=== PATIENT | female | born 1955 | race Caucasian/White ===

== ENCOUNTER → 2020-02-19 | Outpatient (CLI) | payer MEDICARE ==
--- NOTE | 2020-02-19 11:46 | RAD ---
MR#: [id number] Date of Study: 02/19/2020 Ordering Physician: ROSSY MOSLEY Referring Physician: KAMILLA YATES Tech: APPROVED REPORT Test Type: Exercise Stress Nurse/Tech: Giovanni Reis Test Indications: Dyspnea Cardiac History: No known cardiac Medications: See EHR Resting Heart Rate: 86 bpm Resting Blood Pressure: 152/86mmHg Pretest Chest Pain: None Stress Symptoms Pt was too short of breath to continue longer than 1.5 min POST EXERCISE Reason for Termination: Patient request Target HR: 134 Max HR: 136 bpm 100% of Maximum Predicted HR: 134 bpm Exercise duration: 1:35 min:sec, 1 Stage Exercise capacity: 4.6METs Max Blood Pressure: 162/80mmHg Blood Pressure response to exercise: Normal blood pressure response during stress. Heart Rate response to exercise: Normal Chest Pain: No. Arrhythmia: No. ST Change: No. INTERPRETATION Stress EKG Conclusion: Baseline EKG showed sinus rhythm. No ischemic changes at peak stress. Few PV Cs without any significant arrhythmias. Conclusion 1. Treadmill exercise stress electrocardiogram did not show any diagnostic evidence of ischemia. 2. Patient had poor activity tolerance. Signed by : Yonathan Castellon, Electronically Approved : 02/19/2020 11:46:28
== END | disposition home or self-care (01) ==
LOC: NM 09:15
PROVIDERS: ATTEND Family Medicine
DX: R07.89 Other chest pain (principal)
CPT/HCPCS: 93017

== ENCOUNTER → 2020-05-10 | Outpatient (CLI) | payer MEDICARE ==
[~2020-05-10] MED LIST: ESOM20CA PO; IOHEXOL 300 MG/ML 75 ML VIAL. IV ONE; MELA2.5T PO; MV-M1CAP15 PO; NAPR125O4 PO
--- NOTE | 2020-05-10 10:32 | RAD ---
CT CHEST W/CONTRAST INDICATION: Reason: soa x 2 yrs, dry cough, hx ovarian cancer - hyster. x 5 yrs Comparison: None. TECHNIQUE: Following the uneventful administration of intravenous contrast, 75 cc Omnipaque 300, axial CT sections were obtained through the lungs and upper abdomen. Multiplanar reconstructions were obtained. RS compliance statement: One or more of the following individualized dose reduction techniques were utilized for this examination: 1. Automated exposure control 2. Adjustment of the mA and/or kV according to patient size 3. Use of iterative reconstruction technique FINDINGS: Lungs and Airways: No pulmonary mass or consolidation. No abnormality of the central airways. Pleura: The pleural spaces are normal. Heart and Mediastinum: The visualized thyroid is normal in size and attenuation. No axillary or supraclavicular lymphadenopathy. No mediastinal, hilar or retrocrural lymphadenopathy. The heart and pericardium are within normal limits. The great vessels of the thorax are normal. Abdomen: Cholecystectomy. Hepatic steatosis. Bones and Soft Tissues: Degenerative changes of the spine. IMPRESSION: No pulmonary mass or consolidation. No thoracic lymphadenopathy. Electronically signed by: Umair Osman MD (05/10/2020 10:29 AM) [id number]
== END ==
LOC: CT 08:49
PROVIDERS: ATTEND Family Medicine
DX: K76.0 Fatty (change of) liver, not elsewhere classified (principal); R06.00 Dyspnea, unspecified; Z85.43 Personal history of malignant neoplasm of ovary; Z90.49 Acquired absence of other specified parts of digestive tract
CPT/HCPCS: 71260; Q9967